=== PATIENT | male | born 1985 | race Caucasian/White ===

== ENCOUNTER → 2016-09-27 | Outpatient (REF) | payer BC ==
[~2016-09-27] MED LIST: FOLI1TAB86 PO; LEVO500T PO; MULTTAB4 PO; OSEL75CA PO; SYMB80AE IN; THIA50CA PO; verapamil PO
[2016-09-27 16:58] LABS: BASO # 0.1 K/mm3 (0.0-0.2); BASO % 0.9 % (0.0-1.0); EOS # 1.1 K/mm3 (0.0-0.50); EOS % 13.8 % (0.0-3.0); LARGE UNSTAINED CELL # 0.2 K/mm3 (0.0-0.4); LARGE UNSTAINED CELL % 2.1 % (0.0-4.0); LYMPH # 1.7 K/mm3 (1.5-4.5); LYMPH % 22.1 % (24.0-44.0); MEAN CORPUSCULAR HEMOGLOBIN 31.1 pg (27.0-33.0); MEAN CORPUSCULAR HGB CONC 33.6 g/dl (32.0-36.5); MEAN CORPUSCULAR VOLUME 92.7 fl (80.0-96.0); MONO # 0.4 K/mm3 (0.0-0.8); MONO % 5.6 % (0.0-5.0); NEUTROPHILS # 4.3 K/mm3 (1.8-7.7); NEUTROPHILS % 55.4 % (36.0-66.0); PLATELET COUNT, AUTOMATED 333 k/mm3 (150-450); RED CELL DISTRIBUTION WIDTH 12.7 % (11.5-14.5); WHITE BLOOD COUNT 7.8 K/mm3 (4.0-10.0)
[2016-09-27 17:10] LABS: ALBUMIN 4.1 GM/DL (3.2-5.2); ALBUMIN/GLOBULIN RATIO 1.17 (1.00-1.93); ALKALINE PHOSPHATASE 39 U/L (45-117); ALT/SGPT 36 U/L (12-78); ANION GAP 9 MEQ/L (8-16); AST/SGOT 23 U/L (15-37); BILIRUBIN,TOTAL 0.5 MG/DL (0.2-1.0); BLOOD UREA NITROGEN 13 MG/DL (7-18); CALCIUM LEVEL 9.1 MG/DL (8.5-10.1); CARBON DIOXIDE LEVEL 24 MEQ/L (21-32); CHLORIDE LEVEL 108 MEQ/L (98-107); CHOLESTEROL LEVEL 157 MG/DL (<200); CREATININE FOR GFR 0.96 MG/DL (0.70-1.30); GLOMERULAR FILTRATION RATE > 60.0 (>60); GLUCOSE, FASTING 83 MG/DL (70-105); POTASSIUM SERUM 4.5 MEQ/L (3.5-5.1); SODIUM LEVEL 141 MEQ/L (136-145); TOTAL PROTEIN 7.6 GM/DL (6.4-8.2); TRIGLYCERIDES LEVEL 123 MG/DL (<150)
== END ==
LOC: M SFHCADAM 09:42
PROVIDERS: ATTEND Physician Assistant Medical
DX: Z00.00 Encounter for general adult medical examination without abnormal findings (principal); E66.9 Obesity, unspecified; Z86.79 Personal history of other diseases of the circulatory system

== ENCOUNTER 2017-06-17 12:58 | Emergency (ER) | payer BC ==
[2017-06-17 12:15] LABS: BASO # 0.1 10^3/uL (0.0-0.2); BASO % 0.5 % (0.0-1.0); EOS # 0.1 10^3/uL (0.0-0.50); EOS % 0.3 % (0.0-3.0); HEMATOCRIT 47.8 % (42.0-52.0); IMMATURE GRANULOCYTE % 0.5 % (0-3.0); LYMPH % 4.1 % (24.0-44.0); MEAN CORPUSCULAR HEMOGLOBIN 30.2 pg (27.0-33.0); MEAN CORPUSCULAR HGB CONC 35.6 g/dl (32.0-36.5); MEAN CORPUSCULAR VOLUME 84.9 fl (80.0-96.0); MONO # 1.3 10^3/uL (0.0-0.8); MONO % 5.3 % (0.0-5.0); NEUTROPHILS # 21.2 10^3/uL (1.8-7.7); NEUTROPHILS % 89.3 % (36.0-66.0); PLATELET COUNT, AUTOMATED 305 10^3/uL (150-450); RED BLOOD COUNT 5.63 10^6/uL (4.30-6.10); RED CELL DISTRIBUTION WIDTH 11.9 % (11.5-14.5); WHITE BLOOD COUNT 23.7 10^3/uL (4.0-10.0)
[2017-06-17] MEDS: ACETAMINOPHEN TAB 650MG DOSE (2X325MG) PO (12:15)
[2017-06-17 12:43] LABS: ALBUMIN 4.6 GM/DL (3.2-5.2); ALBUMIN/GLOBULIN RATIO 1.18 (1.00-1.93); ALKALINE PHOSPHATASE 34 U/L (45-117); ALT/SGPT 36 U/L (12-78); ANION GAP 8 MEQ/L (8-16); AST/SGOT 21 U/L (7-37); BILIRUBIN,DIRECT 0.2 MG/DL (0.0-0.2); BILIRUBIN,TOTAL 0.8 MG/DL (0.2-1.0); BLOOD UREA NITROGEN 17 MG/DL (7-18); CALCIUM LEVEL 10.2 MG/DL (8.5-10.1); CARBON DIOXIDE LEVEL 23 MEQ/L (21-32); CHLORIDE LEVEL 107 MEQ/L (98-107); CREATININE FOR GFR 0.93 MG/DL (0.70-1.30); GLOMERULAR FILTRATION RATE > 60.0 (>60); GLUCOSE, FASTING 102 MG/DL (70-100); LIPASE 95 U/L (73-393); POTASSIUM SERUM 4.1 MEQ/L (3.5-5.1); SODIUM LEVEL 138 MEQ/L (136-145); TOTAL PROTEIN 8.5 GM/DL (6.4-8.2)
[2017-06-17 12:57] LABS: INFLUENZA A AMPLIFICATION NEGATIVE (NEGATIVE); INFLUENZA B AMPLIFICATION NEGATIVE (NEGATIVE)
[2017-06-17] MEDS: LevoFLOXacin IV 750 MG in APPROPRIATE DILUENT 1 EA IV (13:17)
== END 2017-06-17 15:00 | disposition home or self-care (01) ==
LOC: M ED 12:58
DX: J18.1 Lobar pneumonia, unspecified organism (principal); Z79.899 Other long term (current) drug therapy; Z88.0 Allergy status to penicillin; Z88.8 Allergy status to other drugs, medicaments and biological substances
CPT/HCPCS: J1956

== ENCOUNTER → 2017-06-22 | Outpatient (CLI) | payer BC | LOC: M ADAMS 14:11 | DX: J18.1 Lobar pneumonia, unspecified organism (principal) | CPT/HCPCS: 71046 ==

== ENCOUNTER → 2017-06-22 | Outpatient (REF) | payer BC | LOC: M SFHCADAM 14:04 | DX: J18.1 Lobar pneumonia, unspecified organism (principal) ==

== ENCOUNTER → 2017-07-02 | Outpatient (CLI) | payer BC | LOC: M RAD 13:52 | DX: J18.1 Lobar pneumonia, unspecified organism (principal) | CPT/HCPCS: 71046 ==

== ENCOUNTER → 2018-10-05 | Outpatient (REF) | payer BC ==
[~2018-10-05] MED LIST changes: +CLAR10CA3 PO; +LEVA750T7 PO
[2018-10-05 14:45] LABS: BASO # 0.1 10^3/uL (0.0-0.2); BASO % 0.8 % (0.0-1.0); EOS # 0.6 10^3/uL (0.0-0.50); EOS % 6.4 % (0.0-3.0); HEMATOCRIT 44.8 % (42.0-52.0); HEMOGLOBIN 15.2 g/dl (13.5-17.5); LYMPH # 1.8 10^3/uL (1.5-4.5); LYMPH % 20.4 % (24.0-44.0); MEAN CORPUSCULAR HEMOGLOBIN 30.3 pg (27.0-33.0); MEAN CORPUSCULAR HGB CONC 33.9 g/dl (32.0-36.5); MEAN CORPUSCULAR VOLUME 89.2 fl (80.0-96.0); MONO # 0.9 10^3/uL (0.0-0.8); MONO % 9.8 % (0.0-5.0); NEUTROPHILS # 5.6 10^3/uL (1.8-7.7); NEUTROPHILS % 62.3 % (36.0-66.0); PLATELET COUNT, AUTOMATED 266 10^3/uL (150-450); RED BLOOD COUNT 5.02 10^6/uL (4.30-6.10)
[2018-10-05 14:52] LABS: ALBUMIN 3.9 GM/DL (3.2-5.2); ALT/SGPT 40 U/L (12-78); BILIRUBIN,TOTAL 0.5 MG/DL (0.2-1.0); BLOOD UREA NITROGEN 17 MG/DL (7-18); CALCIUM LEVEL 8.7 MG/DL (8.5-10.1); CARBON DIOXIDE LEVEL 25 MEQ/L (21-32); CHLORIDE LEVEL 109 MEQ/L (98-107); CHOLESTEROL LEVEL 133 MG/DL (<200); CHOLESTEROL RISK RATIO 3.594 (<5); CREATININE FOR GFR 1.05 MG/DL (0.70-1.30); GLOMERULAR FILTRATION RATE > 60.0 (>60); GLUCOSE, FASTING 94 MG/DL (70-100); HDL CHOLESTEROL 37 MG/DL (>40); LDL CHOLESTEROL 75 MG/DL (<100); NON-HDL-C 96 MG/DL; POTASSIUM SERUM 4.2 MEQ/L (3.5-5.1); SODIUM LEVEL 141 MEQ/L (136-145); TOTAL PROTEIN 7.4 GM/DL (6.4-8.2); TRIGLYCERIDES LEVEL 107 MG/DL (<150)
== END ==
LOC: M LABDRWAD 13:28
PROVIDERS: ATTEND Physician Assistant
DX: I10 Essential (primary) hypertension (principal)

== ENCOUNTER → 2019-01-31 | Outpatient (CLI) | payer BC ==
[~2019-01-31] MED LIST changes: +ISOVUE-370 76% 100ML VIAL (Q9967) As Ordered ONE
--- NOTE | 2019-02-01 05:33 | REP ---
Clinical: Severe back pain. Rule out aortic dissection. Technique: Axial contrast enhanced images of the abdomen through the mid iliac level using arterial angiographic technique with coronal and sagittal re-formations as well as volume rendered 3-D rotational MIP images of the aorta and major branch vessels. 100 ml Isovue 370 intravenous contrast material administered without complication. Findings: The abdominal aorta is normal in caliber and appearance without aneurysm or dissection. No periaortic inflammatory changes or fluid is appreciated. No evidence for atherosclerotic disease. Major branch vessels including celiac axis, superior mesenteric artery, dual bilateral renal arteries, inferior mesenteric artery, lumbar arteries and bilateral iliac arteries all appear normal. Liver, spleen, pancreas, gallbladder, bilateral adrenal glands and kidneys are normal for arterial phase evaluation. The enteric system is without obstruction or acute inflammatory process. Normal terminal ileum and appendix identified in the right lower quadrant. Colonic diverticula noted. No ascites. No free air. No adenopathy. Visualized musculoskeletal structures are intact. The lung bases demonstrate a very subtle tree in bud pattern involving the visualized right middle lobe and right lower lobe which may reflect an acute pneumonitis and should be correlated clinically. Impression: 1. Normal aorta and branch vessels. 2. Few scattered colonic/sigmoid diverticula. 3. Subtle tree in bud infiltrates involving the visualized right middle lobe and right lower lobe suggesting possible acute pneumonitis. Electronically Signed by Dominic Mccrary MD 02/01/2019 05:24 A
== END ==
LOC: M RAD 09:59
PROVIDERS: ATTEND Physician Assistant
DX: I10 Essential (primary) hypertension (principal); K57.30 Diverticulosis of large intestine without perforation or abscess without bleeding; R91.8 Other nonspecific abnormal finding of lung field
CPT/HCPCS: 74175; Q9967

== ENCOUNTER → 2019-03-27 | Outpatient (CLI) | payer BC ==
[~2019-03-27] MED LIST changes: -ISOVUE-370 76% 100ML VIAL (Q9967) As Ordered ONE
--- NOTE | 2019-03-27 20:18 | REP ---
Clinical: Cough and fever . Comparison: 07/02/2017 . Technique: PA and lateral. Findings: The mediastinum and cardiac silhouette are normal. The lung thornton are clear and without acute consolidation, effusion, or pneumothorax. The skeletal structures are intact and normal. Impression: 1. No acute cardiopulmonary process. Electronically Signed by Dominic Mccrary MD 03/27/2019 08:10 P
== END ==
LOC: M ADAMS 18:56
PROVIDERS: ATTEND Physician Assistant
DX: R05 Cough (principal); R50.9 Fever, unspecified

== ENCOUNTER 2019-04-21 08:58 | Emergency (ER) | payer BC ==
[~2019-04-21] VITALS: Ht 175.3 cm; Wt 91.8 kg
[2019-04-21] MEDS ORDERED: MONT10TA2 PO (09:49)
[2019-04-21] MEDS ORDERED: AMIO200T PO (09:49)
[2019-04-21] MEDS ORDERED: ECOT81TA5 PO (09:49)
[2019-04-21] MEDS ORDERED: DILT240C81 PO (09:49)
[2019-04-21] MEDS ORDERED: OMEP-218 PO (09:50)
--- NOTE | 2019-04-21 10:19 | REP ---
Portable chest, 09:59 a.m., single AP view with the patient upright: Comparison is 07/02/2017. The lung thornton are clear. The cardiac size is normal. The jules, mediastinum, and skeletal structures are unremarkable. There are sternotomy wires as an interval change. Impression: Negative portable chest. Electronically Signed by Mic Murray MD 04/21/2019 10:11 A
[2019-04-21 10:32] LABS: BASO # 0.1 10^3/uL (0.0-0.2); BASO % 0.6 % (0.0-1.0); EOS # 0.3 10^3/uL (0.0-0.5); HEMATOCRIT 46.1 % (42.0-52.0); HEMOGLOBIN 14.9 g/dl (13.5-17.5); LYMPH # 1.2 10^3/uL (1.5-5.0); LYMPH % 9.3 % (24.0-44.0); MEAN CORPUSCULAR HEMOGLOBIN 29.6 pg (27.0-33.0); MEAN CORPUSCULAR HGB CONC 32.3 g/dl (32.0-36.5); MEAN CORPUSCULAR VOLUME 91.7 fl (80.0-96.0); MONO # 0.8 10^3/uL (0.0-0.8); MONO % 5.7 % (0.0-5.0); NEUTROPHILS # 10.8 10^3/uL (1.5-8.5); NEUTROPHILS % 81.9 % (36.0-66.0); PLATELET COUNT, AUTOMATED 657 10^3/uL (150-450); RED BLOOD COUNT 5.03 10^6/uL (4.30-6.10); WHITE BLOOD COUNT 13.2 10^3/uL (4.0-10.0)
[2019-04-21 11:05] LABS: BLOOD UREA NITROGEN 15 MG/DL (7-18); CALCIUM LEVEL 9.8 MG/DL (8.5-10.1); CARBON DIOXIDE LEVEL 26 MEQ/L (21-32); CHLORIDE LEVEL 105 MEQ/L (98-107); CPK CREATINE PHOSPHOKINASE 125 U/L (39-308); CREATININE FOR GFR 1.02 MG/DL (0.70-1.30); GLOMERULAR FILTRATION RATE > 60.0 (>60); GLUCOSE, FASTING 93 MG/DL (70-100); POTASSIUM SERUM 4.6 MEQ/L (3.5-5.1); SODIUM LEVEL 139 MEQ/L (136-145); TROPONIN I 0.72 NG/ML (< 0.10)
[2019-04-21 11:58] LABS: ALBUMIN 3.4 GM/DL (3.2-5.2); BILIRUBIN,DIRECT 0.1 MG/DL (0.0-0.2); BILIRUBIN,TOTAL 0.2 MG/DL (0.2-1.0); C REACTIVE PROTEIN QUANTITATIV 6.16 MG/DL (0.00-0.30); MAGNESIUM LEVEL 2.1 MG/DL (1.8-2.4); TOTAL PROTEIN 7.8 GM/DL (6.4-8.2)
[2019-04-21] MEDS ORDERED: ISOVUE-370 76% 100ML VIAL (Q9967) As Ordered ONE (12:49)
--- NOTE | 2019-04-21 13:31 | ECGEPIP ---
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
--- NOTE | 2019-04-21 14:29 | REP ---
CT ANGIOGRAM CHEST: TECHNIQUE: Axial contrast enhanced images from the thoracic inlet to the upper abdomen using 100 mL Isovue 370 intravenous contrast material with multiplanar reformations. There is no CT evidence of pulmonary embolism. There is no thoracic aortic aneurysm or dissection. The heart is upper limits of normal in size. There is no significant adenopathy in the axillary regions, nor in the mediastinal or hilar regions. There is mild diffuse pericardial fluid or thickening. Multiple sternal wires and anterior mediastinal clips are present with mild edematous change in the anterior mediastinum, status post recent surgery. No pleural effusion is seen bilaterally. There are mild linear fibroatelectatic changes scattered in the right lung. IMPRESSION: No CT evidence of pulmonary embolism. Patient has had a recent chest surgery with evidence of median sternotomy with multiple anterior mediastinal clips, with mild edematous changes in the anterior mediastinal soft tissues. There is mild diffuse pericardial fluid/thickening. Mild linear fibroatelectatic changes in the right lung. Electronically Signed by Mic Jose MD 04/21/2019 03:35 P
[2019-04-21 14:37] VITALS: BP 137/67
== END 2019-04-21 14:54 | disposition home or self-care (01) ==
LOC: M ED 08:58
DX: R00.0 Tachycardia, unspecified (principal); R00.2 Palpitations; I44.7 Left bundle-branch block, unspecified; Z79.899 Other long term (current) drug therapy; Z79.82 Long term (current) use of aspirin; Z88.0 Allergy status to penicillin; Z88.8 Allergy status to other drugs, medicaments and biological substances; F17.210 Nicotine dependence, cigarettes, uncomplicated
CPT/HCPCS: 36415; 71045; 71275; 80048; 80076; 81001; 82550; 82553; 83735; 84484; 85025; 85652; 86140; 87040; 93005; 93041; 94760; 99284; Q9967

== ENCOUNTER → 2020-06-20 | Outpatient (REF) | payer BC, MEDICAID ==
[~2020-06-20] MED LIST changes: +AMIO200T3 PO; +DILT240C81 PO; +ECOT81TA5 PO; +MONT10TA10 PO; +OMEP-218 PO
[2020-06-20 21:22] LABS: BASO # 0.1 10^3/uL (0.0-0.2); BASO % 0.4 % (0.0-1.0); EOS # 0.4 10^3/uL (0.0-0.5); EOS % 2.9 % (0.0-3.0); HEMATOCRIT 47.7 % (42.0-52.0); HEMOGLOBIN 16.1 g/dl (13.5-17.5); LYMPH # 2.4 10^3/uL (1.5-5.0); LYMPH % 17.9 % (24.0-44.0); MEAN CORPUSCULAR HEMOGLOBIN 30.8 pg (27.0-33.0); MEAN CORPUSCULAR HGB CONC 33.8 g/dl (32.0-36.5); MEAN CORPUSCULAR VOLUME 91.4 fl (80.0-96.0); MONO # 0.9 10^3/uL (0.0-0.8); MONO % 6.8 % (2.0-8.0); NEUTROPHILS # 9.4 10^3/uL (1.5-8.5); NEUTROPHILS % 71.5 % (36.0-66.0); PLATELET COUNT, AUTOMATED 341 10^3/uL (150-450); RED BLOOD COUNT 5.22 10^6/uL (4.30-6.10); WHITE BLOOD COUNT 13.2 10^3/uL (4.0-10.0)
== END ==
LOC: M LAB REF 21:04
PROVIDERS: ATTEND Physician Assistant
DX: M79.673 Pain in unspecified foot (principal)

== ENCOUNTER → 2021-07-01 | Outpatient (REF) | payer BC, MEDICAID ==
[~2021-07-01] MED LIST changes: -AMIO200T3 PO; +AMIO200T49 PO; -MONT10TA10 PO; +MONT10TA97 PO; +OMEP-173 PO; -OMEP-218 PO
[2021-07-01 13:43] LABS: BASO # 0.1 10^3/uL (0.0-0.2); BASO % 0.7 % (0.0-1.0); EOS # 0.4 10^3/uL (0.0-0.5); EOS % 3.8 % (0.0-3.0); HEMATOCRIT 46.3 % (42.0-52.0); HEMOGLOBIN 15.9 g/dl (13.5-17.5); LYMPH # 1.9 10^3/uL (1.5-5.0); LYMPH % 18.5 % (24.0-44.0); MEAN CORPUSCULAR HEMOGLOBIN 30.9 pg (27.0-33.0); MEAN CORPUSCULAR HGB CONC 34.3 g/dl (32.0-36.5); MEAN CORPUSCULAR VOLUME 89.9 fl (80.0-96.0); MONO # 0.9 10^3/uL (0.0-0.8); MONO % 8.8 % (2.0-8.0); NEUTROPHILS # 6.9 10^3/uL (1.5-8.5); NEUTROPHILS % 67.8 % (36.0-66.0); PLATELET COUNT, AUTOMATED 353 10^3/uL (150-450); RED BLOOD COUNT 5.15 10^6/uL (4.30-6.10); WHITE BLOOD COUNT 10.2 10^3/uL (4.0-10.0)
[2021-07-01 17:11] LABS: ALBUMIN 3.8 GM/DL (3.2-5.2); ALT/SGPT 42 U/L (12-78); BILIRUBIN,TOTAL 0.3 MG/DL (0.2-1.0); BLOOD UREA NITROGEN 10 MG/DL (7-18); CALCIUM LEVEL 9.6 MG/DL (8.5-10.1); CARBON DIOXIDE LEVEL 25 MEQ/L (21-32); CHLORIDE LEVEL 109 MEQ/L (98-107); CHOLESTEROL LEVEL 173 MG/DL (<200); CREATININE FOR GFR 0.92 MG/DL (0.70-1.30); GLOMERULAR FILTRATION RATE > 60.0 (>60); GLUCOSE, FASTING 95 MG/DL (70-100); HDL CHOLESTEROL 31 MG/DL (>40); LDL CHOLESTEROL 107 MG/DL (<100); NON-HDL-C 142 MG/DL; POTASSIUM SERUM 4.1 MEQ/L (3.5-5.1); SODIUM LEVEL 139 MEQ/L (136-145); THYROID STIMULATING HORMONE 0.744 uIU/ML (0.358-3.740); TOTAL PROTEIN 7.1 GM/DL (6.4-8.2); TRIGLYCERIDES LEVEL 173 MG/DL (<150)
[2021-07-02 10:56] LABS: TOTAL 25(OH) VITAMIN D 17.9 NG/ML (30.0-100.0)
== END ==
LOC: M SFHCADAM 08:48
PROVIDERS: ATTEND Physician Assistant Medical
DX: Z00.00 Encounter for general adult medical examination without abnormal findings (principal); Z86.79 Personal history of other diseases of the circulatory system; E78.6 Lipoprotein deficiency; E66.9 Obesity, unspecified; K21.9 Gastro-esophageal reflux disease without esophagitis

== ENCOUNTER → 2021-11-23 | Outpatient (CLI) | payer BC, MEDICAID ==
[~2021-11-23] MED LIST changes: +PROAAER10 INH; +SYMB80INH INH; +VITA200032 PO
== END ==
LOC: M LABSMTC 10:17
PROVIDERS: ATTEND Anesthesiology
DX: Z01.812 Encounter for preprocedural laboratory examination (principal); Z20.822 Contact with and (suspected) exposure to COVID-19

== ENCOUNTER 2021-11-26 11:21 | Day surgery (SDC) | payer BC, MEDICAID ==
[~2021-11-26] VITALS: Ht 175.3 cm; Wt 102.9 kg
[~2021-11-26 11:21] MED LIST changes: +NS 1,000 ML IV ONE
[2021-11-26] MEDS ORDERED: propofoL 200 MG/20 ML VIAL As Ordered ONE (14:27)
[2021-11-26 15:00] VITALS: BP 146/87
== END 2021-11-26 15:08 | disposition home or self-care (01) ==
LOC: M OPP 11:21
PROVIDERS: ATTEND Surgery
DX: Z12.11 Encounter for screening for malignant neoplasm of colon (principal); Z80.0 Family history of malignant neoplasm of digestive organs; K64.9 Unspecified hemorrhoids; K55.20 Angiodysplasia of colon without hemorrhage; I10 Essential (primary) hypertension; I42.1 Obstructive hypertrophic cardiomyopathy; Z95.810 Presence of automatic (implantable) cardiac defibrillator; J45.909 Unspecified asthma, uncomplicated; Z79.51 Long term (current) use of inhaled steroids; Z79.82 Long term (current) use of aspirin; Z88.0 Allergy status to penicillin; Z88.8 Allergy status to other drugs, medicaments and biological substances

== ENCOUNTER 2022-09-29 16:37 | Emergency (ER) | payer BC, MEDICAID ==
[~2022-09-29] VITALS: Ht 175.3 cm; Wt 101.8 kg
[2022-09-29 16:37] VITALS: TEMP 98.4
[~2022-09-29 16:37] MED LIST changes: -NS 1,000 ML IV ONE
[2022-09-29] MEDS ORDERED: KETOROLAC 30 MG/ML 1ML VIAL IM ONE (19:55)
[2022-09-29] MEDS ORDERED: KETO10TAB PO (21:11)
[2022-09-29] MEDS ORDERED: CEFU50TA PO (21:11)
[2022-09-29] MEDS ORDERED: PERI0.126 PO (21:11)
[2022-09-29 21:17] VITALS: BP 140/92; O2SAT 99
== END 2022-09-29 21:18 | disposition home or self-care (01) ==
LOC: M ED 16:37
DX: K04.7 Periapical abscess without sinus (principal); K08.89 Other specified disorders of teeth and supporting structures; Z95.4 Presence of other heart-valve replacement; I42.1 Obstructive hypertrophic cardiomyopathy; K21.9 Gastro-esophageal reflux disease without esophagitis; Z87.891 Personal history of nicotine dependence; Z79.82 Long term (current) use of aspirin; Z79.899 Other long term (current) drug therapy; Z88.0 Allergy status to penicillin; Z88.8 Allergy status to other drugs, medicaments and biological substances
CPT/HCPCS: 96372; 99283; J1885

== ENCOUNTER 2023-06-05 21:56 | Emergency (ER) | payer BC, MEDICAID ==
[~2023-06-05] VITALS: Ht 175.3 cm; Wt 106.7 kg
[~2023-06-05 21:56] MED LIST changes: +CEFU50TA PO; +KETO10TAB PO; +PERI0.126 PO
[2023-06-05 21:58] VITALS: BP 132/74; O2SAT 96
[2023-06-05] MEDS: ACETAMINOPHEN 500 MG TAB PO ONE (22:17)
[2023-06-05] MEDS: IPRATROPIUM 0.5MG/ALBUTEROL 2.5MG INH SOL UD 3ML (DUONEB) NEB ONE ×2 (22:52→23:41)
[2023-06-05 23:23] VITALS: TEMP 100
[2023-06-05] MEDS ORDERED: OSEL75CA PO (23:34)
[2023-06-06] MEDS: OSELTAMIVIR PHOSPHATE 75 MG CAP (TAMIFLU) PO ONE (00:05)
== END 2023-06-06 00:10 | disposition home or self-care (01) ==
LOC: M ED 21:56
DX: J10.1 Influenza due to other identified influenza virus with other respiratory manifestations (principal); I10 Essential (primary) hypertension; Z79.82 Long term (current) use of aspirin; Z79.899 Other long term (current) drug therapy; Z88.0 Allergy status to penicillin; Z88.8 Allergy status to other drugs, medicaments and biological substances

== ENCOUNTER → 2023-08-26 | Outpatient (REF) | payer BC ==
[2023-08-26 15:09] LABS: BASO # 0.1 10^3/uL (0.0-0.2); BASO % 0.8 % (0.0-1.0); EOS # 0.2 10^3/uL (0.0-0.5); EOS % 2.2 % (0.0-3.0); HEMATOCRIT 47.8 % (42.0-52.0); HEMOGLOBIN 16.3 g/dl (13.5-17.5); LYMPH # 2.2 10^3/uL (1.5-5.0); LYMPH % 21.1 % (24.0-44.0); MEAN CORPUSCULAR HEMOGLOBIN 32.2 pg (27.0-33.0); MEAN CORPUSCULAR HGB CONC 34.1 g/dl (32.0-36.5); MEAN CORPUSCULAR VOLUME 94.5 fl (80.0-96.0); MONO # 0.8 10^3/uL (0.0-0.8); MONO % 7.8 % (2.0-8.0); NEUTROPHILS # 7.1 10^3/uL (1.5-8.5); NEUTROPHILS % 67.7 % (36.0-66.0); PLATELET COUNT, AUTOMATED 327 10^3/uL (150-450); RED BLOOD COUNT 5.06 10^6/uL (4.30-6.10); WHITE BLOOD COUNT 10.5 10^3/uL (4.0-10.0)
[2023-08-26 15:32] LABS: ALKALINE PHOSPHATASE 36 U/L (46-116); ALT/SGPT 40 U/L (7.0-40); AST/SGOT 19 U/L (<34); BILIRUBIN,TOTAL 0.4 MG/DL (0.3-1.2); BLOOD UREA NITROGEN 17 MG/DL (9-23); CALCIUM LEVEL 9.5 MG/DL (8.5-10.1); CARBON DIOXIDE LEVEL 24 MMOL/L (20-31); CHLORIDE LEVEL 110 MMOL/L (98-107); CHOLESTEROL LEVEL 167 MG/DL (<200); CHOLESTEROL RISK RATIO 5.03 (<5); CREATININE FOR GFR 1.07 MG/DL (0.70-1.30); GLOMERULAR FILTRATION RATE > 60.0 (>60); GLUCOSE, FASTING 89 MG/DL (60-100); HDL CHOLESTEROL 33.2 MG/DL (>40); LDL CHOLESTEROL 110.6 MG/DL (<100); MAGNESIUM LEVEL 2.2 MG/DL (1.8-2.4); NON-HDL-C 133.8 MG/DL; POTASSIUM SERUM 4.6 MMOL/L (3.5-5.1); SODIUM LEVEL 141 MMOL/L (136-145); TOTAL PROTEIN 7.2 G/DL (5.7-8.2); TRIGLYCERIDES LEVEL 116 MG/DL (<150)
[2023-08-26 15:33] LABS: TOTAL 25(OH) VITAMIN D 46.8 NG/ML (20.0-100.0)
== END ==
LOC: M SFHCADAM 08:47
PROVIDERS: ATTEND Physician Assistant Medical
DX: E55.9 Vitamin D deficiency, unspecified (principal); E78.6 Lipoprotein deficiency; E66.9 Obesity, unspecified; Z86.79 Personal history of other diseases of the circulatory system; K21.9 Gastro-esophageal reflux disease without esophagitis; Z68.33 Body mass index [BMI] 33.0-33.9, adult